=== PATIENT | female | born 1955 | race Caucasian/White ===

== ENCOUNTER 2024-01-17 12:53 | Inpatient (IN) | payer MEDICARE ==
--- NOTE | 2024-01-17 13:09 | ED ---
General Adult HPI - General Stated complaint: Overdose Time Seen by Provider: 01/17/24 13:00 Source: patient, RN notes reviewed, old records reviewed Mode of arrival: EMS Limitations: no limitations - History of Present Illness Initial comments: This is a 68-year-old female who presents emergency department because she was acting confused did not know the year or her own age. According to family they think she took too much of her Lyrica. It was prescribed 90 Lyrica on January 13 and only 10 should be missing and there are only 18 left which means there are 62 missing patient denies anything is wrong she denies taking anything she denies any suicidal ideations. Patient denies any symptoms at all she does know why she is here but she is clearly confused - Related Data Allergies Allergy/AdvReac Type Severity Reaction Status Date / Time Penicillins Allergy Unknown Verified 01/17/24 13:34 Sulfa (Sulfonamide Allergy Unknown Verified 01/17/24 13:34 Antibiotics) Review of Systems ROS Statement: Those systems with pertinent positive or pertinent negative responses have been documented in the HPI. ROS Other: All systems not noted in ROS Statement are negative. Past Medical History Past Medical History: Cancer, Myocardial Infarction ([place]) History of Any Multi-Drug Resistant Organisms: None Reported Past Surgical History: Appendectomy Additional Past Surgical History / Comment(s): left kidney removed due to [place]. Past Psychological History: No Psychological Hx Reported Smoking Status: Never smoker Past Alcohol Use History: Occasional Past Drug Use History: Marijuana General Exam - General Exam Comments Initial Comments: GENERAL: Patient is well-developed and well-nourished. Patient is nontoxic and well- hydrated and is in mild distress. ENT: Neck is soft and supple. No significant lymphadenopathy is noted. Oropharynx is clear. Moist mucous membranes. Neck has full range of motion without eliciting any pain. EYES: The sclera were anicteric and conjunctiva were pink and moist. Extraocular movements were intact and pupils were equal round and reactive to light. Eyelids were unremarkable. PULMONARY: Unlabored respirations. Good breath sounds bilaterally. No audible rales rhonchi or wheezing was noted. CARDIOVASCULAR: There is a regular rate and rhythm without any murmurs gallops or rubs. ABDOMEN: Soft and nontender with normal bowel sounds. SKIN: Skin is clear with no lesions or rashes and otherwise unremarkable. NEUROLOGIC: Patient is alert and oriented x 1. cranial nerves II through XII are grossly intact. Motor and sensory are also intact. Normal speech, volume and content. Symmetrical smile. MUSCULOSKELETAL: Normal extremities with adequate strength and full range of motion. No lower extremity swelling or edema. No calf tenderness. LYMPHATICS: No significant lymphadenopathy is noted PSYCHIATRIC: Denies any suicidal or homicidal ideations Limitations: no limitations Course Vital Signs 01/17/24 01/17/24 01/17/24 12:55 13:25 15:03 Pulse Rate 96 94 90 Respiratory 18 18 20 Rate Blood Pressure 168/101 130/77 167/95 O2 Sat by Pulse 94 L 93 L 92 L Oximetry Medical Decision Making - Medical Decision Making EKG is interpreted by myself. EKG is a sinus rhythm at 96 bpm TN interval is 145 QRS is 102 QT interval 317 QTc is 371. Patient EKG shows no ST segment e levation or depression. Was pt. sent in by a medical professional or institution (, PA, FREIGHT REPRESENTATIVE, urgent care, hospital, or intermediate...) When possible be specific @ -No Did you speak to anyone other than the patient for history (EMS, parent, family, police, friend...)? What history was obtained from this source @ -No Did you review nursing and triage notes (agree or disagree)? Why? @ -I reviewed and agree with nursing and triage notes Were old charts reviewed (outside hosp., previous admission, EMS record, old EKG, old radiological studies, urgent care reports/EKG's, intermediate records)? Report findings @ -No old charts were reviewed Differential Diagnosis? @ -Differential Altered Mental Status: Hypoglycemia, DKA, hypercapnia, ETOH, overdose, CO poisoning, trauma, myxedema coma, HTN encephalopathy, infection, encephalitis, psychosis, intercranial hemorrhage, hepatic encephalopathy, meningitis, CVA, this is not meant to be an all-inclusive list EKG interpreted by me (3pts min.). @ -As above X-rays interpreted by me (1pt min.). @ -No CT interpreted by me (1pt min.). @ -CT of the brain shows no acute abnormality U/S interpreted by me (1pt. min.). @ -None done What testing was considered but not performed or refused? (CT, X-rays, U/S, labs)? Why? @ -None What meds were considered but not given or refused? Why? @ -None Did you discuss the management of the patient with other professionals (professionals i.e. DrZain, PA, FREIGHT REPRESENTATIVE, lab, RT, psych nurse, social services aide, pier master, teacher, parachute/combatant diver officer, employment evaluator/case manager)? Give summary @ -I spoke with Dr. Flores he agreed to admit the patient Was smoking cessation discussed for >3mins.? @ -No Was critical care preformed (if so, how long)? @ -No Were there social determinants of health that impacted care today? How? (Homelessness, low income, unemployed, alcoholism, drug addiction, transportation, low edu. Level, literacy, decrease access to med. care, prison, rehab)? @ -No Was there de-escalation of care discussed even if they declined (Discuss DNR or withdrawal of care, Hospice)? DNR status @ -No What co-morbidities impacted this encounter? (DM, HTN, Smoking, COPD, CAD, Cancer, CVA, ARF, Chemo, Hep., AIDS, mental health diagnosis, sleep apnea, morbid obesity)? @ -None Was patient admitted / discharged? Hospital course, mention meds given and route, prescriptions, significant lab abnormalities, going to OR and other pertinent info. @ -Patient remained altered throughout her ED course. Patient had a urinary tract infection and treated with 2 g of Rocephin. Patient also had elevated creatinine no old labs were available to compare to. Patient will be admitted to Dr. Flores I wrote admitting orders Undiagnosed new problem with uncertain prognosis? @ -No Drug Therapy requiring intensive monitoring for toxicity (Heparin, Nitro, Insulin, Cardizem)? @ -No Were any procedures done? @ -No Diagnosis/symptom? @ -Renal insufficiency Acute, or Chronic, or Acute on Chronic? @ -Acute Uncomplicated (without systemic symptoms) or Complicated (systemic symptoms)? @ -Complicated Side effects of treatment? @ -No Exacerbation, Progression, or Severe Exacerbation? @ -No Poses a threat to life or bodily function? How? (Chest pain, [place], MS, pneumonia, PE, COPD, DKA, ARF, appy, cholecystitis, CVA, Diverticulitis, Homicidal, Suic idal, threat to staff... and all critical care pts) @ -No Diagnosis/symptom? @ -Lyrica overdose Acute, or Chronic, or Acute on Chronic? @ -Acute Uncomplicated (without systemic symptoms) or Complicated (systemic symptoms)? @ -Complicated Side effects of treatment? @ -None Exacerbation, Progression, or Severe Exacerbation] @ -No Poses a threat to life or bodily function? @ -No Diagnosis/symptom? @ -Urinary tract infection Acute, or Chronic, or Acute on Chronic? @ -Acute Uncomplicated (without systemic symptoms) or Complicated (systemic symptoms)? @ -Complicated Side effects of treatment? @ -None Exacerbation, Progression, or Severe Exacerbation] @ -No Poses a threat to life or bodily function? @ -No - Lab Data Result diagrams: 01/17/24 13:11 01/17/24 13:11 Lab Results 01/17/24 01/17/24 01/17/24 Range/Units 13:11 13:11 13:11 WBC 12.9 H (3.8-10.6) k/uL RBC 5.31 (3.80-5.40) m/uL Hgb 15.1 (11.4-16.0) gm/dL Hct 48.1 H (34.0-46.0) % MCV 90.5 (80.0-100.0) fL MCH 28.5 (25.0-35.0) pg MCHC 31.4 (31.0-37.0) g/dL RDW 14.5 (11.5-15.5) % Plt Count 211 (150-450) k/uL MPV 9.1 Neutrophils % 80 % Lymphocytes % 12 % Monocytes % 5 % Eosinophils % 0 % Basophils % 0 % Neutrophils # 10.3 H (1.3-7.7) k/uL Lymphocytes # 1.5 (1.0-4.8) k/uL Monocytes # 0.7 (0-1.0) k/uL Eosinophils # 0.1 (0-0.7) k/uL Basophils # 0.1 (0-0.2) k/uL Sodium (137-145) mmol/L Potassium (3.5-5.1) mmol/L Chloride (98-107) mmol/L Carbon Dioxide (22-30) mmol/L Anion Gap mmol/L BUN (7-17) mg/dL Creatinine (0.52-1.04) mg/dL Est GFR (CKD-EPI)AfAm (>60 ml/min/1.73 sqM) Est GFR (CKD-EPI)NonAf (>60 ml/min/1.73 sqM) Glucose (74-99) mg/dL Plasma Lactic Acid [place] (0.7-2.0) mmol/L Calcium (8.4-10.2) mg/dL Total Bilirubin (0.2-1.3) mg/dL AST (14-36) U/L ALT (4-34) U/L Alkaline Phosphatase (38-126) U/L Creatine Kinase (30-135) U/L Total Protein (6.3-8.2) g/dL Albumin (3.5-5.0) g/dL Urine Color Urine Appearance (Clear) Urine pH (5.0-8.0) Ur Specific [place] (1.001-1.035) Urine Protein (Negative) Urine Glucose (UA) (Negative) Urine Ketones (Negative) Urine Blood (Negative) Urine Nitrite (Negative) Urine Bilirubin (Negative) Urine Urobilinogen (<2.0) mg/dL Ur Leukocyte Esterase (Negative) Urine RBC (0-5) /hpf Urine WBC (0-5) /hpf Urine WBC Clumps (None) /hpf Ur Squamous Epith Cells (0-4) /hpf Urine Bacteria (None) /hpf Hyaline Casts (0-2) /lpf Urine Mucus (None) /hpf Urine HCG, Qual Not Detected (Not Detectd) Salicylates mg/dL Urine Opiates Screen Not Detected (NotDetected) Ur Oxycodone Screen Detected H (NotDetected) Urine Methadone Screen Not Detected (NotDetected) Acetaminophen ug/mL Ur Barbiturates Screen Not Detected (NotDetected) U Tricyclic Antidepress Not Detected (NotDetected) Ur Phencyclidine Scrn Not Detected (NotDetected) Ur Amphetamines Screen Not Detected (NotDetected) U Methamphetamines Scrn Not Detected (NotDetected) U Benzodiazepines Scrn Not Detected (NotDetected) Urine Cocaine Screen Not Detected (NotDetected) U Marijuana (THC) Screen Detected H (NotDetected) Serum Alcohol mg/dL 01/17/24 01/17/24 01/17/24 Range/Units 13:11 13:11 13:11 WBC (3.8-10.6) k/uL RBC (3.80-5.40) m/uL Hgb (11.4-16.0) gm/dL Hct (34.0-46.0) % MCV (80.0-100.0) fL MCH (25.0-35.0) pg MCHC (31.0-37.0) g/dL RDW (11.5-15.5) % Plt Count (150-450) k/uL MPV Neutrophils % % Lymphocytes % % Monocytes % % Eosinophils % % Basophils % % Neutrophils # (1.3-7.7) k/uL Lymphocytes # (1.0-4.8) k/uL Monocytes # (0-1.0) k/uL Eosinophils # (0-0.7) k/uL Basophils # (0-0.2) k/uL Sodium 137 (137-145) mmol/L Potassium 5.0 (3.5-5.1) mmol/L Chloride 103 (98-107) mmol/L Carbon Dioxide 22 (22-30) mmol/L Anion Gap 12 mmol/L BUN 60 H (7-17) mg/dL Creatinine 2.89 H (0.52-1.04) mg/dL Est GFR (CKD-EPI)AfAm 19 (>60 ml/min/1.73 sqM) Est GFR (CKD-EPI)NonAf 16 (>60 ml/min/1.73 sqM) Glucose 146 H (74-99) mg/dL Plasma Lactic Acid [place] 1.4 (0.7-2.0) mmol/L Calcium 9.5 (8.4-10.2) mg/dL Total Bilirubin 0.8 (0.2-1.3) mg/dL AST 37 H (14-36) U/L ALT 19 (4-34) U/L Alkaline Phosphatase 82 (38-126) U/L Creatine Kinase 367 H (30-135) U/L Total Protein 6.7 (6.3-8.2) g/dL Albumin 4.3 (3.5-5.0) g/dL Urine Color Urine Appearance (Clear) Urine pH (5.0-8.0) Ur Specific [place] (1.001-1.035) Urine Protein (Negative) Urine Glucose (UA) (Negative) Urine Ketones (Negative) Urine Blood (Negative) Urine Nitrite (Negative) Urine Bilirubin (Negative) Urine Urobilinogen (<2.0) mg/dL Ur Leukocyte Esterase (Negative) Urine RBC (0-5) /hpf Urine WBC (0-5) /hpf Urine WBC Clumps (None) /hpf Ur Squamous Epith Cells (0-4) /hpf Urine Bacteria (None) /hpf Hyaline Casts (0-2) /lpf Urine Mucus (None) /hpf Urine HCG, Qual (Not Detectd) Salicylates <1.0 mg/dL Urine Opiates Screen (NotDetected) Ur Oxycodone Screen (NotDetected) Urine Methadone Screen (NotDetected) Acetaminophen <10.0 ug/mL Ur Barbiturates Screen (NotDetected) U Tricyclic Antidepress (NotDetected) Ur Phencyclidine Scrn (NotDetected) Ur Amphetamines Screen (NotDetected) U Methamphetamines Scrn (NotDetected) U Benzodiazepines Scrn (NotDetected) Urine Cocaine Screen (NotDetected) U Marijuana (THC) Screen (NotDetected) Serum Alcohol <10 mg/dL 01/17/24 Range/Units 13:11 WBC (3.8-10.6) k/uL RBC (3.80-5.40) m/uL Hgb (11.4-16.0) gm/dL Hct (34.0-46.0) % MCV (80.0-100.0) fL MCH (25.0-35.0) pg MCHC (31.0-37.0) g/dL RDW (11.5-15.5) % Plt Count (150-450) k/uL MPV Neutrophils % % Lymphocytes % % Monocytes % % Eosinophils % % Basophils % % Neutrophils # (1.3-7.7) k/uL Lymphocytes # (1.0-4.8) k/uL Monocytes # (0-1.0) k/uL Eosinophils # (0-0.7) k/uL Basophils # (0-0.2) k/uL Sodium (137-145) mmol/L Potassium (3.5-5.1) mmol/L Chloride (98-107) mmol/L Carbon Dioxide (22-30) mmol/L Anion Gap mmol/L BUN (7-17) mg/dL Creatinine (0.52-1.04) mg/dL Est GFR (CKD-EPI)AfAm (>60 ml/min/1.73 sqM) Est GFR (CKD-EPI)NonAf (>60 ml/min/1.73 sqM) Glucose (74-99) mg/dL Plasma Lactic Acid [place] (0.7-2.0) mmol/L Calcium (8.4-10.2) mg/dL Total Bilirubin (0.2-1.3) mg/dL AST (14-36) U/L ALT (4-34) U/L Alkaline Phosphatase (38-126) U/L Creatine Kinase (30-135) U/L Total Protein (6.3-8.2) g/dL Albumin (3.5-5.0) g/dL Urine Color Light Yellow Urine Appearance Turbid H (Clear) Urine pH 5.0 (5.0-8.0) Ur Specific [place] 1.016 (1.001-1.035) Urine Protein 1+ H (Negative) Urine Glucose (UA) Negative (Negative) Urine Ketones Negative (Negative) Urine Blood Small H (Negative) Urine Nitrite Positive H (Negative) Urine Bilirubin Negative (Negative) Urine Urobilinogen <2.0 (<2.0) mg/dL Ur Leukocyte Esterase Large H (Negative) Urine RBC 15 H (0-5) /hpf Urine WBC 115 H (0-5) /hpf Urine WBC Clumps Many H (None) /hpf Ur Squamous Epith Cells 13 H (0-4) /hpf Urine Bacteria Many H (None) /hpf Hyaline Casts 5 H (0-2) /lpf Urine Mucus Rare H (None) /hpf Urine HCG, Qual (Not Detectd) Salicylates mg/dL Urine Opiates Screen (NotDetected) Ur Oxycodone Screen (NotDetected) Urine Methadone Screen (NotDetected) Acetaminophen ug/mL Ur Barbiturates Screen (NotDetected) U Tricyclic Antidepress (NotDetected) Ur Phencyclidine Scrn (NotDetected) Ur Amphetamines Screen (NotDetected) U Methamphetamines Scrn (NotDetected) U Benzodiazepines Scrn (NotDetected) Urine Cocaine Screen (NotDetected) U Marijuana (THC) Screen (NotDetected) Serum Alcohol mg/dL Disposition Clinical Impression: Overdose, UTI (urinary tract infection), Renal failure Disposition: ADMITTED IP TO THIS HOSP Referrals: Nonstaff,Physician [Primary Care Provider] - 1-2 days Time of Disposition: 15:52
[2024-01-17] MEDS: SODIUM CHLORIDE 0.9% 1,000 ML IV STA (13:22)
[2024-01-17 13:26] LABS: Basophils # (A) 0.1 k/uL (0-0.2); Basophils % (A) 0 %; Eosinophils # (A) 0.1 k/uL (0-0.7); Eosinophils % (A) 0 %; HCT 48.1 % (34.0-46.0); HGB 15.1 gm/dL (11.4-16.0); Lymphocytes # (A) 1.5 k/uL (1.0-4.8); Lymphocytes % (A) 12 %; MCH 28.5 pg (25.0-35.0); MCHC 31.4 g/dL (31.0-37.0); MCV 90.5 fL (80.0-100.0); Mean Platelet Volume 9.1; Monocytes # (A) 0.7 k/uL (0-1.0); Monocytes % (A) 5 %; Neutrophils # (A) 10.3 k/uL (1.3-7.7); Neutrophils % (A) 80 %; Platelet Count 211 k/uL (150-450); RBC 5.31 m/uL (3.80-5.40); RDW 14.5 % (11.5-15.5); WBC 12.9 k/uL (3.8-10.6)
[2024-01-17 13:38] LABS: Appearance,Urine Turbid (Clear); Bacteria,Urine Many /hpf; Bilirubin,Urine Negative (Negative); Blood,Urine Small (Negative); Color,Urine Light Yellow; Glucose,Urine (UA) Negative (Negative); Hyaline Casts,Urine 5 /lpf (0-2); Ketones,Urine Negative (Negative); Leukocyte Esterase,Urine Large (Negative); Mucus,Urine Rare /hpf; Nitrite,Urine Positive (Negative); Protein,Urine 1+ (Negative); RBC,Urine 15 /hpf (0-5); Specific Gravity,Urine 1.016 (1.001-1.035); Squamous Epithelial Cell,Urine 13 /hpf (0-4); Urobilinogen,Urine <2.0 mg/dL (<2.0); WBC,Urine 115 /hpf (0-5)
[2024-01-17] MEDS: LORazepam 2 MG/ML INJ IV STA ×2 (13:39→16:50)
[2024-01-17 13:44] LABS: ALT 19 U/L (4-34); AST 37 U/L (14-36); Acetaminophen <10.0 ug/mL; African American GFR (CKD) 19 (>60 ml/min/1.73 sqM); Albumin 4.3 g/dL (3.5-5.0); Alcohol <10 mg/dL; Alkaline Phosphatase 82 U/L (38-126); Anion Gap 12 mmol/L; Blood Urea Nitrogen 60 mg/dL (7-17); Calcium 9.5 mg/dL (8.4-10.2); Carbon Dioxide 22 mmol/L (22-30); Chloride 103 mmol/L (98-107); Glucose 146 mg/dL (74-99); Non-African American GFR(CKD) 16 (>60 ml/min/1.73 sqM); Salicylate <1.0 mg/dL; Sodium 137 mmol/L (137-145); Total Bilirubin 0.8 mg/dL (0.2-1.3); Total Protein 6.7 g/dL (6.3-8.2)
[2024-01-17 13:50] LABS: Amphetamine Screen,Urine Not Detected (NotDetected); Barbiturate Screen,Urine Not Detected (NotDetected); Benzodiazepines Screen,Urine Not Detected (NotDetected); Cocaine Screen,Urine Not Detected (NotDetected); Methadone Screen, Urine Not Detected (NotDetected); Opiate Screen,Urine Not Detected (NotDetected); Oxycodone Screen, Urine Detected (NotDetected); Phencyclidine Screen,Urine Not Detected (NotDetected); Tricyclic Antidepressant,Urine Not Detected (NotDetected); Urn Cannabinoid Scrn Detected (NotDetected)
[2024-01-17] MEDS: cefTRIAXone IN SWFI 1,000 MG/10 ML SYRINGE IVP STA ×2 (15:00)
--- NOTE | 2024-01-17 15:28 | CT ---
EXAMINATION TYPE: CT brain wo con CT DLP: 1109.4 mGycm, Automated exposure control for dose reduction was used. DATE OF EXAM: 01/17/2024 3:00 PM COMPARISON: None. CLINICAL INDICATION:Female, 68 years old with history of Altered mental status, AMS TECHNIQUE: Brain: Axial CT images of the brain were obtained with coronal and sagittal reformats created and rev iewed. Contrast used: None. Oral contrast used: None. FINDINGS: Brain: Extra-axial spaces: No abnormal extra-axial fluid collections. Ventricular system: Within normal limits Cerebral parenchyma: No acute intraparenchymal hemorrhage or mass effect. The mittal-white junction is well differentiated. Cerebellum: Unremarkable. Mass effect: No evidence of midline shift. Intracranial vasculature: Atherosclerotic calcifications of the intracranial vessels. Soft tissues: Normal. Calvarium/osseous structures: No depressed skull fracture. Paranasal sinuses and mastoid air cells: Mild scattered paranasal sinus disease. Visualized orbits: Orbital contents are intact. IMPRESSION: No acute intracranial process.
--- NOTE | 2024-01-17 16:31 | P.HPIM ---
History of Present Illness H&P Date: 01/17/24 Chief Complaint: Confusion This is a 68-year-old white female who reported possible confusion. She states that she was at her nephew's alliance party and does not remember what has happened but was brought in for confusion. At the time of examination patient is mostly oriented but appears ill but sluggish. She denies subjective fever or chills, no chest pain abdominal pain no nausea no vomiting no dizziness. She is not sure if she took more Keppra than usual. Review of Systems Systems reviewed, pertinent positive and negative findings as in HPI. No chest pain, no abdominal pain no nausea or vomiting. Past Medical History Past Medical History: Cancer, Myocardial Infarction ([place]) History of Any Multi-Drug Resistant Organisms: None Reported Past Surgical History: Appendectomy Additional Past Surgical History / Comment(s): left kidney removed due to [place]. Past Psychological History: No Psychological Hx Reported Smoking Status: Never smoker Past Alcohol Use History: Occasional Past Drug Use History: Marijuana Medications and Allergies Home Medications Medication Instructions Recorded Confirmed Type Albuterol Inhaler [Ventolin Hfa 1 - 2 puff INHALATION RT-Q4H PRN 01/17/24 History Inhaler] DULoxetine HCL [Cymbalta] 60 mg PO BID 01/17/24 01/17/24 History Fluticasone Furoate [Arnuity 1 puff INHALATION RT-DAILY 01/17/24 01/17/24 History Ellipta] Loratadine [Claritin] 10 mg PO DAILY 01/17/24 01/17/24 History Metoclopramide [Reglan] 10 mg PO ACHS PRN 01/17/24 01/17/24 History Pregabalin [Lyrica] 200 mg PO TID 01/17/24 01/17/24 History Tiotropium 2.5 Mcg/Puff [Spiriva 2 puff INHALATION RT-DAILY 01/17/24 01/17/24 History Respimat 2.5 Mcg] busPIRone HCL [Buspar] 7.5 mg PO TID PRN 01/17/24 01/17/24 History hydroCHLOROthiazide [Hydrodiuril] 50 mg PO DAILY 01/17/24 01/17/24 History lisinopriL [Prinivil] 20 mg PO DAILY 01/17/24 01/17/24 History rOPINIRole HCL [Requip] 0.25 mg PO TID 01/17/24 01/17/24 History tiZANidine [Zanaflex] 4 mg PO TID 01/17/24 01/17/24 History traZODone HCL 100 mg PO HS 01/17/24 01/17/24 History Allergies Allergy/AdvReac Type Severity Reaction Status Date / Time Penicillins Allergy Unknown Verified 01/17/24 16:03 Sulfa (Sulfonamide Allergy Unknown Verified 01/17/24 16:03 Antibiotics) Physical Exam Vitals: Vital Signs Pulse Resp BP Pulse Ox 01/17/24 15:03 90 20 167/95 92 L 01/17/24 13:25 94 18 130/77 93 L 01/17/24 12:55 96 18 168/101 94 L Intake and Output 01/17/24 01/17/24 01/17/24 06:59 14:59 22:59 Other: Weight 90.718 kg Constitutional: No acute distress, conversant, pleasant Eyes: Anicteric sclerae, moist conjunctiva, no lid-lag, PERRLA ENMT: NC/AT,Oropharynx clear, no erythema, exudates Neck:Supple, FROM, no masses, or JVD, No carotid bruits; No thyromegaly Lungs: Clear to auscultation, Clear to percussion, Normal respiratory effort, no accessory muscle use Cardiovascular: Heart regular in rate and rhythm, No murmurs, gallops, or rubs no peripheral edema Abdominal: Soft Nontender, non distended, no guarding, no rebound or rigidity, Normoactive bowel sounds No hepatomegaly, No splenomegaly, No palpable mass No abdominal wall hernia noted Skin: Normal temperature, tone, texture, turgor, No induration No subcutaneous nodules, No rash, lesions, No ulcers Extremities:No digital cyanosis No clubbing, Pedal pulses intact and symmetrical Radial pulses intact and symmetrical Normal gait and station, No calf tenderness Psychiatric: Alert and oriented to person, place and time, Appropriate affect Intact judgement Neuro: Muscles Strength 5/5 in all 4 extremities, Sensation to light touch grossly present throughout, Cranial nerves II-XII grossly intact. No focal sensory deficits Results CBC & Chem 7: 01/17/24 13:11 01/17/24 13:11 Labs: Abnormal Lab Results - Last 24 Hours (Table) 01/17/24 01/17/24 01/17/24 Range/Units 13:11 13:11 13:11 WBC 12.9 H (3.8-10.6) k/uL Hct 48.1 H (34.0-46.0) % Neutrophils # 10.3 H (1.3-7.7) k/uL BUN 60 H (7-17) mg/dL Creatinine 2.89 H (0.52-1.04) mg/dL Glucose 146 H (74-99) mg/dL AST 37 H (14-36) U/L Creatine Kinase (30-135) U/L Urine Appearance (Clear) Urine Protein (Negative) Urine Blood (Negative) Urine Nitrite (Negative) Ur Leukocyte Esterase (Negative) Urine RBC (0-5) /hpf Urine WBC (0-5) /hpf Urine WBC Clumps (None) /hpf Ur Squamous Epith Cells (0-4) /hpf Urine Bacteria (None) /hpf Hyaline Casts (0-2) /lpf Urine Mucus (None) /hpf Ur Oxycodone Screen Detected H (NotDetected) U Marijuana (THC) Screen Detected H (NotDetected) 01/17/24 01/17/24 Range/Units 13:11 13:11 WBC (3.8-10.6) k/uL Hct (34.0-46.0) % Neutrophils # (1.3-7.7) k/uL BUN (7-17) mg/dL Creatinine (0.52-1.04) mg/dL Glucose (74-99) mg/dL AST (14-36) U/L Creatine Kinase 367 H (30-135) U/L Urine Appearance Turbid H (Clear) Urine Protein 1+ H (Negative) Urine Blood Small H (Negative) Urine Nitrite Positive H (Negative) Ur Leukocyte Esterase Large H (Negative) Urine RBC 15 H (0-5) /hpf Urine WBC 115 H (0-5) /hpf Urine WBC Clumps Many H (None) /hpf Ur Squamous Epith Cells 13 H (0-4) /hpf Urine Bacteria Many H (None) /hpf Hyaline Casts 5 H (0-2) /lpf Urine Mucus Rare H (None) /hpf Ur Oxycodone Screen (NotDetected) U Marijuana (THC) Screen (NotDetected) Assessment and Plan Plan: Assessment and plan: 1. Metabolic encephalopathy: Multifactorial in the setting of acute UTI and possibly secondary to Lyrica, treat with IV Rocephin, IV fluids hold off on Lyrica. Supportive care. 2. Acute UTI unspecified organism: Continue Rocephin. 3. Acute kidney injury: Creatinine 2.8 unknown baseline likely associated with hypovolemia, continue IV fluids, nephrology consultation. 4. SIRS without sepsis secondary to UTI: WBC 12.9, treat underlying condition. IV fluids and IV antibiotics. 5. Depression: Continue duloxetine 6. Anxiety: Continue BuSpar 7. Essential hypertension: Hold lisinopril in the setting of acute kidney injury. Disposition: Home in the next 1 to 2 days pending clinical progression
[2024-01-17] MEDS: SODIUM CHLORIDE 0.9% 1,000 ML IV ONE (17:53)
[2024-01-17] MEDS: DULoxetine HCL 60 MG CAPSULE.DR PO SCH (22:10)
[2024-01-18 08:41] LABS: Basophils # (A) 0.04 X 10*3/uL (0.00-0.10); Basophils % (A) 0.5 %; Eosinophils # (A) 0.04 X 10*3/uL (0.04-0.35); Eosinophils % (A) 0.5 %; HCT 44.7 % (37.2-46.3); HGB 14.4 g/dL (12.0-15.0); Lymphocytes # (A) 2.32 X 10*3/uL (0.90-5.00); Lymphocytes % (A) 26.5 %; MCH 29.1 pg (27.0-32.0); MCHC 32.2 g/dL (32.0-37.0); MCV 90.3 FL (80.0-97.0); Monocytes # (A) 0.84 X 10*3/uL (0.20-1.00); Monocytes % (A) 9.6 %; NRBC Per 100 WBC 0 X 10*3/uL (0.00-0.01); Neutrophils # (A) 5.46 X 10*3/uL (1.80-7.70); Neutrophils % (A) 62.3 %; Platelet Count 201 X 10*3/uL (140-440); RBC 4.95 X 10*6/uL (4.10-5.20); RDW 14.6 % (11.5-14.5); WBC 8.75 X 10*3/uL (4.50-10.00)
[2024-01-18 08:59] LABS: ALT 17 U/L (8-44); AST 31 U/L (13-35); Alkaline Phosphatase 79 U/L (41-126); Calcium 8.8 mg/dL (8.7-10.3); Carbon Dioxide 23.8 mmol/L (21.6-31.8); Chloride 106 mmol/L (96-109); Glucose 119 mg/dL (70-110); Potassium 5.1 mmol/L (3.5-5.5); Sodium 138 mmol/L (135-145); Total Bilirubin 0.4 mg/dL (0.3-1.2)
--- NOTE | 2024-01-18 10:53 | P.PN ---
Subjective Progress Note Date: 01/18/24 Feels better today, no chest pain no abdominal pain nausea and vomiting, Mental status better. Objective - Vital Signs Vital signs: Vital Signs Temp 98.0 F 01/18/24 07:13 Pulse 72 01/18/24 07:13 Resp 18 01/18/24 07:13 BP 166/89 01/18/24 07:13 Pulse Ox 92 L 01/18/24 07:13 FiO2 Intake & Output 01/17/24 01/18/24 01/18/24 18:59 06:59 18:59 Weight 90.718 kg 94.5 kg Other: Voiding Method Toilet # Voids 2 - Exam Constitutional: No acute distress, conversant, pleasant Eyes: Anicteric sclerae, moist conjunctiva, no lid-lag, PERRLA ENMT: NC/AT,Oropharynx clear, no erythema, exudates Neck:Supple, FROM, no masses, or JVD, No carotid bruits; No thyromegaly Lungs: Clear to auscultation, Clear to percussion, Normal respiratory effort, no accessory muscle use Cardiovascular: Heart regular in rate and rhythm, No murmurs, gallops, or rubs no peripheral edema Abdominal: Soft Nontender, nom distended, no guarding, no rebound or rigidity, Normoactive bowel sounds No hepatomegaly, No splenomegaly, No palpable mass No abdominal wall hernia noted Skin: Normal temperature, tone, texture, turgor, No induration No subcutaneous nodules, No rash, lesions, No ulcers Extremities:No digital cyanosis No clubbing, Pedal pulses intact and s ymmetrical Radial pulses intact and symmetrical Normal gait and station, No calf tenderness Psychiatric: Alert and oriented to person, place and time, Appropriate affect Intact judgement Neuro: Muscles Strength 5/5 in all 4 extremities, Sensation to light touch grossly present throughout, Cranial nerves II-XII grossly intact. No focal sensory deficits - Labs CBC & Chem 7: 01/18/24 04:12 01/18/24 04:12 Labs: Abnormal Lab Results - Last 24 Hours (Table) 01/17/24 01/17/24 01/17/24 Range/Units 13:11 13:11 13:11 WBC 12.9 H (3.8-10.6) k/uL Hct 48.1 H (34.0-46.0) % RDW (11.5-14.5) % Immature Gran # (0.00-0.04) X 10*3/uL Neutrophils # 10.3 H (1.3-7.7) k/uL BUN 60 H (7-17) mg/dL Creatinine 2.89 H (0.52-1.04) mg/dL Est GFR (CKD-EPI) (>=60) BUN/Creatinine Ratio (12.00-20.00) Ratio Glucose 146 H (74-99) mg/dL AST 37 H (14-36) U/L Creatine Kinase (30-135) U/L Total Protein (6.2-8.2) g/dL Urine Appearance (Clear) Urine Protein (Negative) Urine Blood (Negative) Urine Nitrite (Negative) Ur Leukocyte Esterase (Negative) Urine RBC (0-5) /hpf Urine WBC (0-5) /hpf Urine WBC Clumps (None) /hpf Ur Squamous Epith Cells (0-4) /hpf Urine Bacteria (None) /hpf Hyaline Casts (0-2) /lpf Urine Mucus (None) /hpf Ur Oxycodone Screen Detected H (NotDetected) U Marijuana (THC) Screen Detected H (NotDetected) 01/17/24 01/17/24 01/18/24 Range/Units 13:11 13:11 04:12 WBC (3.8-10.6) k/uL Hct (34.0-46.0) % RDW 14.6 H (11.5-14.5) % Immature Gran # 0.05 H (0.00-0.04) X 10*3/uL Neutrophils # (1.3-7.7) k/uL BUN (7-17) mg/dL Creatinine (0.52-1.04) mg/dL Est GFR (CKD-EPI) (>=60) BUN/Creatinine Ratio (12.00-20.00) Ratio Glucose (74-99) mg/dL AST (14-36) U/L Creatine Kinase 367 H (30-135) U/L Total Protein (6.2-8.2) g/dL Urine Appearance Turbid H (Clear) Urine Protein 1+ H (Negative) Urine Blood Small H (Negative) Urine Nitrite Positive H (Negative) Ur Leukocyte Esterase Large H (Negative) Urine RBC 15 H (0-5) /hpf Urine WBC 115 H (0-5) /hpf Urine WBC Clumps Many H (None) /hpf Ur Squamous Epith Cells 13 H (0-4) /hpf Urine Bacteria Many H (None) /hpf Hyaline Casts 5 H (0-2) /lpf Urine Mucus Rare H (None) /hpf Ur Oxycodone Screen (NotDetected) U Marijuana (THC) Screen (NotDetected) 01/18/24 Range/Units 04:12 WBC (3.8-10.6) k/uL Hct (34.0-46.0) % RDW (11.5-14.5) % Immature Gran # (0.00-0.04) X 10*3/uL Neutrophils # (1.3-7.7) k/uL BUN 36.0 H (7-17) mg/dL Creatinine (0.52-1.04) mg/dL Est GFR (CKD-EPI) 38 L (>=60) BUN/Creatinine Ratio 24.00 H (12.00-20.00) Ratio Glucose 119 H (74-99) mg/dL AST (14-36) U/L Creatine Kinase (30-135) U/L Total Protein 6.0 L (6.2-8.2) g/dL Urine Appearance (Clear) Urine Protein (Negative) Urine Blood (Negative) Urine Nitrite (Negative) Ur Leukocyte Esterase (Negative) Urine RBC (0-5) /hpf Urine WBC (0-5) /hpf Urine WBC Clumps (None) /hpf Ur Squamous Epith Cells (0-4) /hpf Urine Bacteria (None) /hpf Hyaline Casts (0-2) /lpf Urine Mucus (None) /hpf Ur Oxycodone Screen (NotDetected) U Marijuana (THC) Screen (NotDetected) Assessment and Plan Plan: Assessment and plan: 1. Metabolic encephalopathy: Multifactorial in the setting of acute UTI and possibly secondary to Lyrica, treat with IV Rocephin, IV fluids hold off on Lyrica. Supportive care.Consult psychiatry for further input 2. Acute UTI unspecified organism: Continue Rocephin. 3. Acute kidney injury: Creatinine 2.8 unknown baseline likely associated with hypovolemia, continue IV fluids, nephrology consultation.Creatinine improved on 0.5 4. SIRS without sepsis secondary to UTI: WBC 12.9, treat underlying condition. IV fluids and IV antibiotics.WBC normalized 5. Depression: Continue duloxetine 6. Anxiety: Continue BuSpar 7. Essential hypertension: Hold lisinopril in the setting of acute kidney inj ury. Disposition: Home Hopefully tomorrow
--- NOTE | 2024-01-18 14:07 | P.NPCON ---
History of Present Illness - Reason for Consult Consult date: 01/18/24 - History of Present Illness Patient is a 68-year-old female seen at bedside for renal consultation for acute kidney injury. She was brought to the emergency department yesterday for confusion and shortness of breath. She states that she had her left kidney removed due to renal cancer about a year ago. Patient has unknown baseline renal function. On admission, creatinine was 2.89, BUN 60 which has improved today to creatinine 1.5 and BUN 36. She states that she has past medical history of hypertension, [place], and renal cancer. She is on room air. She is hemodynamically stable. She is nonoliguric. Vital signs are stable. General: No acute distress. HEENT: Head exam is unremarkable. Lungs: No audible rhonchi, wheezes, or rales. Heart: Rate and rhythm are regular. Extremities: No edema present. Past Medical History Past Medical History: Cancer, Myocardial Infarction ([place]) Additional Past Medical History / Comment(s): kidney cancer-left Last Myocardial Infarction Date:: unknown History of Any Multi-Drug Resistant Organisms: None Reported Past Surgical History: Appendectomy Additional Past Surgical History / Comment(s): left kidney removed due to CA. Past Anesthesia/Blood Transfusion Reactions: No Reported Reaction Past Psychological History: No Psychological Hx Reported Smoking Status: Never smoker Past Alcohol Use History: Occasional Past Drug Use History: Marijuana Medications and Allergies Home Medications Medication Instructions Recorded Confirmed Type Albuterol Inhaler [Ventolin Hfa 1 - 2 puff INHALATION RT-Q4H PRN 01/17/24 01/17/24 History Inhaler] DULoxetine HCL [Cymbalta] 60 mg PO BID 01/17/24 01/17/24 History Fluticasone Furoate [Arnuity 1 puff INHALATION RT-DAILY 01/17/24 01/17/24 History Ellipta] Loratadine [Claritin] 10 mg PO DAILY 01/17/24 01/17/24 History Metoclopramide [Reglan] 10 mg PO ACHS PRN 01/17/24 01/17/24 History Pregabalin [Lyrica] 200 mg PO TID 01/17/24 01/17/24 History Tiotropium 2.5 Mcg/Puff [Spiriva 2 puff INHALATION RT-DAILY 01/17/24 01/17/24 History Respimat 2.5 Mcg] busPIRone HCL [Buspar] 7.5 mg PO TID PRN 01/17/24 01/17/24 History hydroCHLOROthiazide [Hydrodiuril] 50 mg PO DAILY 01/17/24 01/17/24 History lisinopriL [Prinivil] 20 mg PO DAILY 01/17/24 01/17/24 History rOPINIRole HCL [Requip] 0.25 mg PO TID 01/17/24 01/17/24 History tiZANidine [Zanaflex] 4 mg PO TID 01/17/24 01/17/24 History traZODone HCL 100 mg PO HS 01/17/24 01/17/24 History Allergies Allergy/AdvReac Type Severity Reaction Status Date / Time Penicillins Allergy Unknown Verified 01/17/24 16:03 Sulfa (Sulfonamide Allergy Unknown Verified 01/17/24 16:03 Antibiotics) Physical Exam Vitals: Vital Signs Temp Pulse Pulse Resp BP BP Pulse Ox 01/18/24 07:13 98.0 F 72 18 166/89 92 L 01/18/24 01:13 98 F 78 18 145/93 96 01/17/24 22:05 98.5 F 79 22 152/83 95 01/17/24 21:30 76 18 156/97 94 L 01/17/24 19:15 95 01/17/24 19:00 98.7 F 75 16 156/97 90 L 01/17/24 15:03 90 20 167/95 92 L 01/17/24 13:25 94 18 130/77 93 L 01/17/24 12:55 96 18 168/101 94 L Intake and Output 01/17/24 01/18/24 01/18/24 22:59 06:59 14:59 Other: Voiding Method Toilet # Voids 1 2 Weight 94.5 kg Results - Lab Results Most recent lab results Calcium 8.8 mg/dL (8.7-10.3) 01/18/24 04:12 01/18/24 04:12 01/18/24 04:12 Assessment and Plan Assessment: 1. Nonoliguric acute kidney injury on chronic kidney disease-improved. Baseline creatinine unknown. Presented with creatinine 2.89, improved to 1.5. 2. Urinary tract infection. 3. Metabolic Encephalopathy due to #2-Improved 4. CKD unknown stage, history of left nephrectomy 1998 due to renal cancer. Plan: Continue antibiotics for UTI, as per primary. Continue to hold home hydrochlorothiazide and lisinopril. Monitor renal function. Patient is cleared for discharge from a nephrology standpoint. Patient should follow-up in outpatient nephrology within one month. Patient seen and examined independently with resident. Agree with assessment and plan as outlined. Patient clear for discharge with outpatient follow-up. OK to resume lisinopril and HCTZ at discharge. Thank you for the consultation. We will continue to follow the patient with you during her hospital stay.
--- NOTE | 2024-01-18 15:27 | P.CN ---
Psychiatric Consult - . Consult date: 01/18/24 Consult:: 01/18/24 15:26 CONSULTATION Reason for consult: Altered MS identifying Data: The patient is 68-year-old, , white female, who lives in [place], [place]. Reason for admission: History of present illness: The patient was brought to the emergency department with confusion secondary to taking approximately 62 pills of Lyrica as per information of the family. The family members were not present with the patient in ER. There was no petition done. The patient denied taking anything. She suicidal ideations. After initial examination and other work-up, the patient was transferred to medical floor for further management. During this evaluation, the patient reported state that she asked her niece for Cymbalta because she was having difficulty coping with certain things. She denied taking anything else. She accepted being confused but firmly denied taking anything else and was surprised why was she so confuse to be admitted. When she was gently confronted with the results of Oxycodone being in the urine, the patient was surprised. She stated that she does not take narcotic pain medications. She stated that her niece is a pill pusher and dose all kinds of things. The patient noted that she is from [facility] and here to help her niece, who is going have surgery. She denied having any symptoms of depression, anxiety, lack of sleep, excessive energy, being elated, feeling suicidal or homicidal. The patient wanted to find out the reason for being confused. As per nursing staff, the patient was confused this morning and was having difficulty remembering. The patient was aware of place and person but got mixed-up with the year stating the year as 11/08/1923. Past psychiatric history. As per patient, she has never sought psychiatric treatment in the past. She denied psychiatric hospitalizations, out-pt psychiatric treatment, suicidal or homicidal ideations or behavior. She noted taking Cymbalta, Lyrica, and Trazodone. She stated that she picked her prescription few days ago. She indicated getting her prescriptions from family physician Dr. Henriquez. She stated that she gets her prescriptions from [facility]. [place], [place] near [place]. Initially, she stated taking Cymbalta but later said that she just took it once from her niece before getting confused. The patient is a unreliable historian. Her history needs to be corroborated. The patients daughter did not respond. Left message. Her nieces phone number is unavailable. The pharmacist at [facility] stated that she once came here this year but was not dispensed any psychiatric medications. On leading questions denied depression, anxiety, hopelessness, worthlessness, suicidal or homicidal ideations. The patient denied any symptoms of paranoia, or any other delusional thinking, A/V hallucinations. Current and past medications: As stated above. Out-pt follow-up: None for psychiatric reasons, as per patient. History of past psychiatric illness: No other than stated in HPI. No history of suicidal or homicidal ideations or behavior. Past medical history: Renal ca, status post right nephrectomy, [place], COPD Substance abuse history: Occasional use of alcohol and Marijuana, as per patient. Family history of psychiatric disorder: The patient denied. No h/o suicide or homicide. MSE: Alert and attentive Orientation X2 Pleasant and cooperative. Psychomotor activity: Normal Speech: Normal tone, quality, and quantity Mood: Stated to be good. Affect: Consistent with mood SI or HI: None Thought content: Normal Thought process: Normal Perceptual disturbance: Normal Cognition: Some intermittent confusion and lapses in memory. Higher cognitive functions intact. Judgement and Insight: Fair. Diagnosis: Drug induced altered MS. Plan: The patients history needs to be corroborated. Will come back and see the patient once her cognition clears up. Reconsult, if the MS changes.
[2024-01-19 09:18] LABS: Basophils # (A) 0.02 X 10*3/uL (0.00-0.10); Basophils % (A) 0.3 %; Eosinophils # (A) 0.05 X 10*3/uL (0.04-0.35); Eosinophils % (A) 0.7 %; HCT 48.3 % (37.2-46.3); HGB 15.6 g/dL (12.0-15.0); Lymphocytes # (A) 1.74 X 10*3/uL (0.90-5.00); Lymphocytes % (A) 24.5 %; MCH 28.2 pg (27.0-32.0); MCHC 32.3 g/dL (32.0-37.0); MCV 87.3 FL (80.0-97.0); Mean Platelet Volume 11.7 FL (9.5-12.2); Monocytes % (A) 8.5 %; NRBC Per 100 WBC 0 X 10*3/uL (0.00-0.01); Neutrophils # (A) 4.66 X 10*3/uL (1.80-7.70); Neutrophils % (A) 65.6 %; Platelet Count 199 X 10*3/uL (140-440); RBC 5.53 X 10*6/uL (4.10-5.20)
[2024-01-19 09:31] LABS: ALT 23 U/L (8-44); AST 31 U/L (13-35); Albumin 4.3 g/dL (3.8-4.9); Albumin/Globulin Ratio 1.87 Ratio (1.60-3.17); Alkaline Phosphatase 94 U/L (41-126); Blood Urea Nitrogen 20.6 mg/dL (9.0-27.0); Calcium 9.7 mg/dL (8.7-10.3); Carbon Dioxide 24.2 mmol/L (21.6-31.8); Chloride 105 mmol/L (96-109); Globulin 2.3 g/dL (1.6-3.3); Glucose 126 mg/dL (70-110); Potassium 4.8 mmol/L (3.5-5.5); Sodium 140 mmol/L (135-145); Total Bilirubin 0.4 mg/dL (0.3-1.2); Total Protein 6.6 g/dL (6.2-8.2)
[2024-01-19] MEDS: hydrALAZINE HCL 25 MG TAB PO SCH (09:56)
--- NOTE | 2024-01-19 13:12 | P.PN ---
Subjective patient is seen for follow-up for acute kidney injury. renal function has improved serum creatinine down to 1.0 from 2.89 on initial admission. status post IV fluids. Patient is voiding well. no significant complaints today. BP elevated . Patient has been off of HUGO inhibitor's since admission due to acute kidney injury. Objective - Vital Signs Vital signs: Vital Signs Temp 98.0 F 01/19/24 07:14 Pulse 77 01/19/24 07:14 Resp 17 01/19/24 07:14 BP 210/114 01/19/24 07:14 Pulse Ox 96 01/19/24 07:14 FiO2 Intake & Output 01/18/24 01/19/24 01/19/24 18:59 06:59 18:59 Intake Total 900 Balance 900 Intake: Intake, IV Titration 900 Amount Sodium Chloride 0.9% 1, 900 000 ml @ 75 mls/hr IV . [id number] ONE Rx#:[id number] Other: # Voids 1 - Exam patient is awake, comfortable, no acute distress. Examination of the heart S1 and S2 Examination of the lungs bilateral breath sounds are heard Abdomen is soft nontender Examination of lower extremities shows no significant edema OPHTHALMOLOGY ASSISTANT exam grossly intact - Labs CBC & Chem 7: 01/19/24 03:49 01/19/24 03:49 Labs: Abnormal Lab Results - Last 24 Hours (Table) 01/19/24 01/19/24 Range/Units 03:49 03:49 RBC 5.53 H (4.10-5.20) X 10*6/uL Hgb 15.6 H (12.0-15.0) g/dL Hct 48.3 H (37.2-46.3) % BUN/Creatinine Ratio 20.60 H (12.00-20.00) Ratio Glucose 126 H (70-110) mg/dL Microbiology - Last 24 Hours (Table) 01/17/24 14:15 Blood Culture - Preliminary Blood 01/17/24 14:00 Blood Culture - Preliminary Blood Assessment and Plan Assessment: 1. Acute kidney injury, most likely ATN, nonoliguric and improved. Status post IV fluids. Lisinopril has been on hold. Blood pressure is elevated today therefore Hugo inhibitors will be restarted. Check ultrasound of the kidneys. 2. Mental status changes, now improved. 3. Pyuria, urine culture not available. Currently maintained on antibiotics. Likely had UTI. 4. Hypertension, currently uncontrolled 5. History of depression/anxiety Plan: resume lisinopril. Repeat labs in a.m. Continue with antibiotics Check ultrasound of the kidneys.
--- NOTE | 2024-01-19 14:20 | US ---
EXAMINATION TYPE: US kidneys/renal and bladder DATE OF EXAM: 01/19/2024 COMPARISON: NONE CLINICAL INDICATION: Female, 68 years old with history of jaycee; JAYCEE, UTI. right nephrectomy years ago, history of kidney cancer EXAM MEASUREMENTS: Right Kidney: Surgically absent Left Kidney: 12.6 x 5.3 x 5.2 cm Right Kidney: Surgically absent Left Kidney: no evidence of hydronephrosis Bladder: not fully distended, appears wnl Bilateral Jets seen: no There is no evidence for hydronephrosis at this point in time. No nephrolithiasis is seen. No alejandro s are identified. The urinary bladder is anechoic. Bilateral ureteral jets are seen. Increased echotexture to liver. IMPRESSION: 1. No evidence for obstructive uropathy or renal calculus. 2. Hepatic steatosis.
[2024-01-19] MEDS: lisinopriL 10 MG TAB PO SCH (14:21)
--- NOTE | 2024-01-19 14:43 | P.PN ---
Subjective Progress Note Date: 01/19/24 Patient has no new complaints today. Patient says that she no longer feels confused and has been overall feeling improved. Patient was hypertensive to 210/114, and has not been on her home lisinopril or hydrochlorothiazide as a consequence of acute kidney injury. Her creatinine is improved back to base line. She has good urine output. Psychiatry saw this patient due to her overdose of Lyrica and recommended reevaluation once her mental status improves. Gen: In NAD, non-toxic HEENT: normocephalic, atraumatic, hearing acuity is intant, mucous membranes moist CVS: perfusing all extremities well, no pitting edema, Respiratory: symmetric chest expansion, no accessory muscle use, GI: soft, NTTP, ND, : no suprapubic tenderness, no CVA tenderness MSK/Derm: no rashes, cyanosis Neuro: CN II-XII intact, no motor weakness, Psych: cooperative, euthymic mood, judgment and insight is intact Hospital course: 68-year-old woman with medical history of [place], depression, anxiety, hypertension presented for evaluation of altered mental status. Patient was noted to have potentially consumed too much Lyrica and was also found to have acute kidney injury. She was started on IV fluids with nephrology consultation and started on antibiotics for suspected urinary tract infection despite contaminated urine analysis. Patient's hospital course was subsequently complicated by hypertensive urgency with a peak pressure of 210/114 and patient was started on hydralazine and resumed on her home lisinopril. Assessment/plan: Hypertensive urgency -Resume home lisinopril 20 mg daily today -Start hydralazine 25 mg twice daily, 25 mg 4 times daily as needed for SBP greater than 180 -Renal ultrasound Metabolic encephalopathy Lyrica overdose, suspected -Treat acute kidney injury as below -Hold Lyrica -Psychiatry consult, appreciated Acute kidney injury Acute tubular necrosis Complicated urinary tract infection -Nephrology consult -IV fluids -Continue ceftriaxone Pt is Full Code Objective - Vital Signs Vital signs: Vital Signs Temp 98.0 F 01/19/24 07:14 Pulse 77 01/19/24 07:14 Resp 17 01/19/24 07:14 BP 210/114 01/19/24 07:14 Pulse Ox 96 01/19/24 07:14 FiO2 Intake & Output 01/18/24 01/19/24 01/19/24 18:59 06:59 18:59 Intake Total 900 Balance 900 Intake: Intake, IV Titration 900 Amount Sodium Chloride 0.9% 1, 900 000 ml @ 75 mls/hr IV . [id number] ONE Rx#:[id number] Other: # Voids 1 - Labs CBC & Chem 7: 01/19/24 03:49 01/19/24 03:49 Labs: Abnormal Lab Results - Last 24 Hours (Table) 01/19/24 01/19/24 Range/Units 03:49 03:49 RBC 5.53 H (4.10-5.20) X 10*6/uL Hgb 15.6 H (12.0-15.0) g/dL Hct 48.3 H (37.2-46.3) % BUN/Creatinine Ratio 20.60 H (12.00-20.00) Ratio Glucose 126 H (70-110) mg/dL Microbiology - Last 24 Hours (Table) 01/17/24 14:15 Blood Culture - Preliminary Blood 01/17/24 14:00 Blood Culture - Preliminary Blood
[2024-01-19] MEDS: busPIRone HCl 5 MG TAB PO PRN (20:45)
[2024-01-20] MEDS: traZODone HCL 100 MG TAB PO ONE (00:12)
[2024-01-20] MEDS: hydrALAZINE HCL 25 MG TAB PO PRN (07:59)
[2024-01-20 09:56] LABS: Basophils # (A) 0.06 X 10*3/uL (0.00-0.10); Basophils % (A) 0.6 %; Eosinophils # (A) 0.02 X 10*3/uL (0.04-0.35); Eosinophils % (A) 0.2 %; HCT 51.7 % (37.2-46.3); HGB 17.1 g/dL (12.0-15.0); Lymphocytes % (A) 15.1 %; MCH 28.4 pg (27.0-32.0); MCHC 33.1 g/dL (32.0-37.0); MCV 85.9 FL (80.0-97.0); Mean Platelet Volume 11.9 FL (9.5-12.2); Monocytes # (A) 0.74 X 10*3/uL (0.20-1.00); Monocytes % (A) 7.5 %; NRBC Per 100 WBC 0 X 10*3/uL (0.00-0.01); Neutrophils # (A) 7.55 X 10*3/uL (1.80-7.70); Neutrophils % (A) 76.2 %; Platelet Count 239 X 10*3/uL (140-440); RBC 6.02 X 10*6/uL (4.10-5.20); WBC 9.91 X 10*3/uL (4.50-10.00)
[2024-01-20 10:25] LABS: ALT 19 U/L (8-44); AST 21 U/L (13-35); Albumin 4.5 g/dL (3.8-4.9); Alkaline Phosphatase 104 U/L (41-126); BUN/Creat Ratio 18.56 Ratio (12.00-20.00); Blood Urea Nitrogen 16.7 mg/dL (9.0-27.0); Calcium 10.2 mg/dL (8.7-10.3); Carbon Dioxide 22.7 mmol/L (21.6-31.8); Chloride 104 mmol/L (96-109); Globulin 2.5 g/dL (1.6-3.3); Glucose 125 mg/dL (70-110); Potassium 4.6 mmol/L (3.5-5.5); Sodium 142 mmol/L (135-145); Total Bilirubin 0.6 mg/dL (0.3-1.2)
--- NOTE | 2024-01-20 11:34 | P.PN ---
Subjective Progress Note Date: 01/20/24 Patient reports lower abdominal pain in the suprapubic region, denies fevers, chills, nausea, vomiting, dysuria. Gen: In NAD, non-toxic HEENT: normocephalic, atraumatic, hearing acuity is intant, mucous membranes moist CVS: perfusing all extremities well, no pitting edema, Respiratory: symmetric chest expansion, no accessory muscle use, GI: soft, NTTP, ND, : no suprapubic tenderness, no CVA tenderness MSK/Derm: no rashes, cyanosis Neuro: CN II-XII intact, no motor weakness, Psych: cooperative, euthymic mood, judgment and insight is intact Hospital course: 68-year-old woman with medical history of [place], depression, anxiety, hypertension presented for evaluation of altered mental status. Patient was noted to have potentially consumed too much Lyrica and was also found to have acute kidney injury. She was started on IV fluids with nephrology consultation and started on antibiotics for suspected urinary tract infection despite contaminated urine analysis. Patient's hospital course was subsequently complicated by hypertensive urgency with a peak pressure of 210/114 and patient was started on hydralazine and resumed on her home lisinopril. Assessment/plan: Hypertensive urgency -Resume home lisinopril 20 mg daily today -Continue hydralazine 25 mg twice daily, 25 mg 4 times daily as needed for SBP greater than 180 -Renal ultrasound showed no evidence of obstructive uropathy or renal calculus Metabolic encephalopathy Lyrica overdose, suspected -Treat acute kidney injury as below -Hold Lyrica -Psychiatry consult, appreciated Acute kidney injury Acute tubular necrosis Complicated urinary tract infection -Nephrology consult -IV fluids -Continue ceftriaxone -Repeat UA today Pt is Full Code Objective - Vital Signs Vital signs: Vital Signs Temp 97.9 F 01/20/24 06:53 Pulse 120 H 01/20/24 09:15 Resp 16 01/20/24 06:53 BP 146/90 01/20/24 09:15 Pulse Ox 97 01/20/24 09:10 FiO2 Intake & Output 01/19/24 01/20/24 01/20/24 18:59 06:59 18:59 Intake Total 50 Balance 50 Intake: Intake, IV Titration 50 Amount cefTRIAXone 2 gm In 50 Sodium Chloride 0.9% 50 ml @ 100 mls/hr IVPB Q24HR [facility] Rx#:[id number] Other: Voiding Method Toilet Toilet # Voids 4 3 - Labs CBC & Chem 7: 01/20/24 05:52 01/20/24 05:52 Labs: Abnormal Lab Results - Last 24 Hours (Table) 01/20/24 01/20/24 Range/Units 05:52 05:52 RBC 6.02 H (4.10-5.20) X 10*6/uL Hgb 17.1 H (12.0-15.0) g/dL Hct 51.7 H (37.2-46.3) % Eosinophils # 0.02 L (0.04-0.35) X 10*3/uL Anion Gap 15.30 H (4.00-12.00) mmol/L Glucose 125 H (70-110) mg/dL Microbiology - Last 24 Hours (Table) 01/17/24 14:15 Blood Culture - Preliminary Blood 01/17/24 14:00 Blood Culture - Preliminary Blood
[2024-01-20 11:58] LABS: Appearance,Urine Cloudy (Clear); Bacteria,Urine Rare /hpf; Bilirubin,Urine Negative (Negative); Blood,Urine Negative (Negative); Color,Urine Yellow; Glucose,Urine (UA) Trace (Negative); Leukocyte Esterase,Urine Negative (Negative); Mucus,Urine Occasional /hpf; Nitrite,Urine Negative (Negative); PH, Urine 5.5 (5.0-8.0); Protein,Urine 2+ (Negative); RBC,Urine 36 /hpf (0-5); Specific Gravity,Urine 1.026 (1.001-1.035); Squamous Epithelial Cell,Urine 2 /hpf (0-4); Urobilinogen,Urine <2.0 mg/dL (<2.0); WBC,Urine 1 /hpf (0-5)
[2024-01-20 11:59] LABS: Ketones,Urine 4+ (Negative)
--- NOTE | 2024-01-20 13:00 | P.PN ---
Subjective patient is seen for follow-up for acute kidney injury. Renal function has improved serum creatinine down to 1.0 from 2.89 on initial admission. status post IV fluids. Patient is voiding well. no significant complaints today. CORNELL inhibitors were restarted as blood pressure is elevated. Objective - Vital Signs Vital signs: Vital Signs Temp 97.9 F 01/20/24 06:53 Pulse 120 H 01/20/24 09:15 Resp 16 01/20/24 06:53 BP 146/90 01/20/24 09:15 Pulse Ox 97 01/20/24 09:10 FiO2 Intake & Output 01/19/24 01/20/24 01/20/24 18:59 06:59 18:59 Intake Total 50 Balance 50 Intake: Intake, IV Titration 50 Amount cefTRIAXone 2 gm In 50 Sodium Chloride 0.9% 50 ml @ 100 mls/hr IVPB Q24HR [facility] Rx#:[id number] Other: Voiding Method Toilet Toilet # Voids 4 3 - Exam patient is awake, comfortable, no acute distress. Examination of the heart S1 and S2 Examination of the lungs bilateral breath sounds are heard Abdomen is soft nontender Examination of lower extremities shows no significant edema [employer] exam grossly intact - Labs CBC & Chem 7: 01/20/24 05:52 01/20/24 05:52 Labs: Abnormal Lab Results - Last 24 Hours (Table) 01/20/24 01/20/24 01/20/24 Range/Units 05:52 05:52 11:25 RBC 6.02 H (4.10-5.20) X 10*6/uL Hgb 17.1 H (12.0-15.0) g/dL Hct 51.7 H (37.2-46.3) % Eosinophils # 0.02 L (0.04-0.35) X 10*3/uL Anion Gap 15.30 H (4.00-12.00) mmol/L Glucose 125 H (70-110) mg/dL Urine Appearance Cloudy H (Clear) Urine Protein 2+ H (Negative) Urine Glucose (UA) Trace H (Negative) Urine Ketones 4+ H (Negative) Urine RBC 36 H (0-5) /hpf Urine Bacteria Rare H (None) /hpf Urine Mucus Occasional H (None) /hpf Microbiology - Last 24 Hours (Table) 01/17/24 14:15 Blood Culture - Preliminary Blood 01/17/24 14:00 Blood Culture - Preliminary Blood Assessment and Plan Assessment: 1. Acute kidney injury, most likely ATN, nonoliguric and improved. Status post IV fluids. Lisinopril has been restarted as Blood pressure are elevated. no obstruction noted on ultrasound 2. Mental status changes, now improved. 3. Pyuria, urine culture not available. Currently maintained on antibiotics. Likely had UTI. 4. Hypertension, currently uncontrolled 5. History of depression/anxiety 6. Right nephrectomy for renal cell cancer Plan: continue with lisinopril. Repeat labs in a.m. Continue with antibiotics
[2024-01-20] MEDS: lisinopriL 20 MG TAB PO STA (14:39)
[2024-01-20] MEDS: traZODone HCL 100 MG TAB PO SCH (22:35)
[2024-01-21 00:37] VITALS: PULSE 107
[2024-01-21 07:35] VITALS: BP 135/94; RESP 20; TEMP 98.6
[2024-01-21] MEDS: NYSTATIN 100,000 UNIT/GM POWD 15 GM TOPICAL SCH (08:52)
[2024-01-21] MEDS: lisinopriL 10 MG TAB PO SCH (08:52)
--- NOTE | 2024-01-21 11:45 | P.PN ---
Subjective Progress Note Date: 01/21/24 Patient is being seen for follow-up for acute kidney injury. Renal function has improved. Creatinine yesterday was 0.9 down from 2.89 on admission. Status post IV fluids. Patient is voiding well. No significant complaints today. Patient was restarted on home CORNELL inhibitors as blood pressure has been elevated. Vital signs are stable. General: No acute distress. Heart: Regular rate and rhythm. Lungs: No audible rhonchi, wheezes, or rales; bilateral breath sounds present. Extremities: No edema present. Objective - Vital Signs Vital signs: Vital Signs Temp 98.6 F 01/21/24 07:01 Pulse 107 H 01/21/24 07:01 Resp 20 01/21/24 07:01 BP 135/94 01/21/24 07:01 Pulse Ox 97 01/21/24 07:01 FiO2 Intake & Output 01/20/24 01/21/24 01/21/24 18:59 06:59 18:59 Other: Voiding Method Toilet Toilet # Voids 3 2 - Labs CBC & Chem 7: 01/20/24 05:52 01/20/24 05:52 Labs: Abnormal Lab Results - Last 24 Hours (Table) 01/20/24 Range/Units 11:25 Urine Appearance Cloudy H (Clear) Urine Protein 2+ H (Negative) Urine Glucose (UA) Trace H (Negative) Urine Ketones 4+ H (Negative) Urine RBC 36 H (0-5) /hpf Urine Bacteria Rare H (None) /hpf Urine Mucus Occasional H (None) /hpf Microbiology - Last 24 Hours (Table) 01/17/24 14:15 Blood Culture - Preliminary Blood 01/17/24 14:00 Blood Culture - Preliminary Blood Assessment and Plan Assessment: 1. Acute kidney injury, most likely ATN, nonoliguric and improved. Status post IV fluids. Lisinopril has been maintained to control blood pressure. 2. Mental status changesimproved. 3. Pyuriaurine culture not available-likely UTI. Currently maintained on antibiotics. 4. Hypertensionuncontrolled currently. 5. History of depression/anxiety. 6. Right nephrectomy for renal cell cancer. Plan: Continue with lisinopril. Continue with antibiotics. Repeat labs in the morning. Reviewed resident's note. Agree with resident's findings and plan.
--- NOTE | 2024-01-21 13:41 | P.DS ---
Providers Date of admission: 01/17/24 15:55 Expected date of discharge: 01/21/24 Attending physician: Yoan Flores MD Consults: 01/17/24 16:31 Consult Physician Routine Consulting Provider: Maurizio Kemp Consult Reason/Comments: elian Do you want consulting provider notified?: Yes 01/18/24 10:49 Consult Physician Routine Consulting Provider: Rolando Daniels Consult Reason/Comments: lyrica overdose Do you want consulting provider notified?: Yes Primary care physician: Physician Nonstaff Hospital Course: Assessment: Hypertensive urgency Metabolic encephalopathy Lyrica overdose, suspected Acute kidney injury Acute tubular necrosis Complicated urinary tract infection Gen: In NAD, non-toxic HEENT: normocephalic, atraumatic, hearing acuity is intant, mucous membranes moist CVS: perfusing all extremities well, no pitting edema, Respiratory: symmetric chest expansion, no accessory muscle use, GI: soft, NTTP, ND, : no suprapubic tenderness, no CVA tenderness MSK/Derm: no rashes, cyanosis Neuro: CN II-XII intact, no motor weakness, Psych: cooperative, euthymic mood, judgment and insight is intact Hospital course: 68-year-old woman with medical history of MA, depression, anxiety, hypertension presented for evaluation of altered mental status. Patient was noted to have potentially consumed too much Lyrica and was also found to have acute kidney injury. She was started on IV fluids with nephrology consultation and started on antibiotics for suspected urinary tract infection despite contaminated urine analysis. Patient's hospital course was subsequently complicated by hypertensive urgency with a peak pressure of 210/114 and patient was started on hydralazine and resumed on her home lisinopril. Patient did undergo repeat urinalysis which did demonstrate findings of UTI given her suprapubic pain, bacteria, leukocyte esterase present in the urine, and patient was prescribed cefdinir on discharge to complete course for complicated urinary tract infection. During her hospitalization, her lisinopril was uptitrated. On discharge, patient also had the addition of hydralazine for BP management. Patient did not endorse any SI/HI on discharge. I spent 36 minutes coordinating this discharge Patient Condition at Discharge: Good Plan - Discharge Summary Discharge Rx Participant: No New Discharge Prescriptions: New Cefdinir 300 mg PO Q12HR #10 cap hydrALAZINE HCL [Apresoline] 25 mg PO BID #60 tab Continue Albuterol Inhaler [Ventolin Hfa Inhaler] 1 - 2 puff INHALATION RT-Q4H PRN PRN Reason: Shortness Of Breath busPIRone HCL [Buspar] 7.5 mg PO TID PRN PRN Reason: Anxiety DULoxetine HCL [Cymbalta] 60 mg PO BID Fluticasone Furoate [Arnuity Ellipta] 1 puff INHALATION RT-DAILY Pregabalin [Lyrica] 200 mg PO TID rOPINIRole HCL [Requip] 0.25 mg PO TID lisinopriL [Prinivil] 20 mg PO DAILY Loratadine [Claritin] 10 mg PO DAILY Tiotropium 2.5 Mcg/Puff [Spiriva Respimat 2.5 Mcg] 2 puff INHALATION RT-DAILY traZODone HCL 100 mg PO HS Discontinued hydroCHLOROthiazide [Hydrodiuril] 50 mg PO DAILY tiZANidine [Zanaflex] 4 mg PO TID Metoclopramide [Reglan] 10 mg PO ACHS PRN PRN Reason: Nausea Discharge Medication List Albuterol Inhaler [Ventolin Hfa Inhaler] 1 - 2 puff INHALATION RT-Q4H PRN 01/17/24 [History] DULoxetine HCL [Cymbalta] 60 mg PO BID 01/17/24 [History] Fluticasone Furoate [Arnuity Ellipta] 1 puff INHALATION RT-DAILY 01/17/24 [History] Loratadine [Claritin] 10 mg PO DAILY 01/17/24 [History] Pregabalin [Lyrica] 200 mg PO TID 01/17/24 [History] Tiotropium 2.5 Mcg/Puff [Spiriva Respimat 2.5 Mcg] 2 puff INHALATION RT-DAILY 01/17/24 [History] busPIRone HCL [Buspar] 7.5 mg PO TID PRN 01/17/24 [History] lisinopriL [Prinivil] 20 mg PO DAILY 01/17/24 [History] rOPINIRole HCL [Requip] 0.25 mg PO TID 01/17/24 [History] traZODone HCL 100 mg PO HS 01/17/24 [History] Cefdinir 300 mg PO Q12HR #10 cap 01/21/24 [Rx] hydrALAZINE HCL [Apresoline] 25 mg PO BID #60 tab 01/21/24 [Rx] Follow up Appointment(s)/Referral(s): Nonstaff,Physician [Primary Care Provider] - 1-2 days (Patient instructed to find a medical doctor for follow-up) Patient Instructions/Handouts: Hydralazine (By mouth), Cefdinir (By mouth), Acute Kidney Injury (DC), Urinary Tract Infection in Women (DC) Discharge Disposition: HOME SELF-CARE
== END 2024-01-21 12:46 | disposition home or self-care (01) | DRG 917 ==
LOC: EC 12:53 → 5NMEDONC 15:55
PROVIDERS: ADMIT Student in an Organized Health Care Education/Training Program; ATTEND Student in an Organized Health Care Education/Training Program
DX: T42.6X1A Poisoning by other antiepileptic and sedative-hypnotic drugs, accidental (unintentional), initial encounter (principal); G92.8 Other toxic encephalopathy; N17.0 Acute kidney failure with tubular necrosis; N39.0 Urinary tract infection, site not specified; J44.9 Chronic obstructive pulmonary disease, unspecified; N18.9 Chronic kidney disease, unspecified; F32.A Depression, unspecified; Z28.310 Unvaccinated for COVID-19; I12.9 Hypertensive chronic kidney disease with stage 1 through stage 4 chronic kidney disease, or unspecified chronic kidney disease; E86.1 Hypovolemia; F41.9 Anxiety disorder, unspecified; I16.0 Hypertensive urgency; I25.2 Old myocardial infarction; Z79.51 Long term (current) use of inhaled steroids; Z79.899 Other long term (current) drug therapy; Z85.528 Personal history of other malignant neoplasm of kidney; Z88.0 Allergy status to penicillin; Z88.2 Allergy status to sulfonamides
CPT/HCPCS: 36415; 70450; 76770; 80053; 80143; 80179; 80306; 80320; 81001; 81025; 82140; 82550; 83605; 85025; 87040; 93005; 94760; 96361; 96374; 96375; 96376; 99285